=== PATIENT | female | born 1990 | race African-American/Black ===

== ENCOUNTER 2018-10-28 16:55 | Emergency (ER) | payer OTHER ==
[~2018-10-28] VITALS: Ht 149.9 cm; Wt 50.0 kg
[~2018-10-28 16:55] MED LIST: NOCURR
[2018-10-28] MEDS ORDERED: CYCLOBENZAPRINE HCL 10 MG TABLET PO ONE (17:45)
[2018-10-28] MEDS ORDERED: IBUPROFEN 600 MG TABLET PO ONE (17:45)
[2018-10-28 21:36] VITALS: BP 132/70
== END 2018-10-28 21:38 | disposition home or self-care (01) ==
LOC: EMS 16:55 → EEVIPCON 16:55 → EMS 21:38
DX: S13.4XXA Sprain of ligaments of cervical spine, initial encounter (principal); M25.561 Pain in right knee; R51 Headache; V43.52XA Car driver injured in collision with other type car in traffic accident, initial encounter; Y93.89 Activity, other specified; Y92.89 Other specified places as the place of occurrence of the external cause; Y99.8 Other external cause status
CPT/HCPCS: 70450; 70486; 72125